=== PATIENT | female | born 2000 | race Caucasian/White ===

== ENCOUNTER 2024-12-27 02:07 | Inpatient (IN) | payer OTHER ==
[2024-12-27 08:22] LABS: ABSOLUTE IMMATURE GRANULOCYTES 0.06 x10^3/uL (0.0-0.031); BASOPHILS # 0.01 x10^3/uL (0.01-0.08); EOSINOPHIL % 0.2 % (0.7-5.8); EOSINOPHILS # 0.02 x10^3/uL (0.04-0.36); IMMATURE PLATELET FRACTION # 16.40 x10^3/uL; MCHC 32.6 g/dl (32.2-35.5); MEAN CELL VOLUME 99.1 fl (79.4-94.8); MONOCYTE # 0.78 x10^3/uL (0.24-0.86); MONOCYTE % 6.9 % (4.7-12.5); RDW 13.2 % (12.1-16.5)
[2024-12-27 08:27] LABS: INR 1.04 (0.83-1.09); PROTHROMBIN TIME (PATIENT) 11.3 SEC (9.7-13.0)
[2024-12-27 08:30] LABS: ACTIVATED PTT 27.4 SECONDS (25.2-36.5)
[2024-12-27 08:32] VITALS: BMI 21.4
[2024-12-27 08:39] LABS: CO2 22.0 mmol/L (21-32); GLUCOSE,RANDOM 73.0 mg/dL (74-106)
[2024-12-27 08:43] LABS: CREATININE 0.5 mg/dL (0.55-1.3)
[2024-12-27] MEDS ORDERED: FENTANYL/BUPIVACAINE/NS/PF - PCEA - 50 ML DISP.SYRIN EP ONE ×4 (09:26→22:32)
[2024-12-27] MEDS: OXYTOCIN 30 UNITS in 0.9% NS 30 UNIT/500 ML INFUS.BAG IVPB SCH (10:00)
[2024-12-27] MEDS: FENTANYL/BUPIVACAINE/NS/PF - PCEA - 50 ML DISP.SYRIN EP SCH (10:05)
[2024-12-27] MEDS ORDERED: OXYTOCIN 30 UNITS in 0.9% NS 30 UNIT/500 ML INFUS.BAG IVPB ONE (10:24)
[2024-12-27] MEDS ORDERED: NALOXONE HCL 0.4 MG/ML VIAL IVPUSH PRN (12:03)
[2024-12-27] MEDS ORDERED: OXYTOCIN 20 UNITS in 0.9% NS 20 UNIT/1,000 ML INFUS.BAG IV ONE (20:20)
[2024-12-27] MEDS ORDERED: METOCLOPRAMIDE HCL INJECTION 10 MG/2 ML VIAL ONE (23:48)
[2024-12-27] MEDS ORDERED: DEXAMETHASONE SOD PHOSPHATE 4 MG/1 ML VIAL ONE (23:48)
[2024-12-27] MEDS ORDERED: LIDOCAINE HCL/PF 2% SDV 5ML VIAL ONE (23:48)
[2024-12-27] MEDS ORDERED: OXYTOCIN 10 UNITS/ML VIAL ONE (23:48)
[2024-12-27] MEDS ORDERED: KETOROLAC TROMETHAMINE 30 MG/1 ML VIAL ONE (23:48)
[2024-12-27] MEDS ORDERED: ONDANSETRON 4 MG/2 ML VIAL ONE (23:48)
[2024-12-27] MEDS ORDERED: SODIUM CHLORIDE 0.9% P/F 10 ML VIAL IJ ONE (23:49)
[2024-12-28] MEDS ORDERED: FENTANYL CITRATE/PF 50 MCG/ML VIAL ONE (00:01)
[2024-12-28] MEDS ORDERED: morphine SULFATE/PF 1 MG/2 ML (2cc Syringe - QUVA) ONE (00:08)
[2024-12-28] MEDS ORDERED: AZITHROMYCIN IVPB 500 MG/250 ML BAG IVPB ONE (00:14)
[2024-12-28] MEDS ORDERED: SODIUM CHLORIDE 0.9% P/F 10 ML VIAL IJ ONE (00:16)
[2024-12-28] MEDS ORDERED: OXYTOCIN 10 UNITS/ML VIAL ONE (00:51)
[2024-12-28] MEDS ORDERED: ESMOLOL HCL 100,000 MCG/10 ML VIAL ONE (00:58)
[2024-12-28] MEDS ORDERED: METOPROLOL TARTRATE 5 MG/5 ML VIAL ONE (01:12)
[2024-12-28] MEDS ORDERED: METHYLERGONOVINE MALEATE 0.2 MG/1 ML AMP IM PRN (01:38)
[2024-12-28] MEDS: OXYTOCIN 20 UNITS in 0.9% NS 20 UNIT/1,000 ML INFUS.BAG IV SCH (02:15)
[2024-12-28] MEDS ORDERED: IBUPROFEN (CALDOLOR) 800 MG/200 ML PREMIX BAGS IVPB ONE (03:53)
[2024-12-28] MEDS: IBUPROFEN 800 MG/8 ML IJ IVPB PRN (04:00)
[2024-12-28] MEDS: LACTATED RINGERS SOLUTION 1,000 ML IV ONE (06:36)
[2024-12-28 07:53] LABS: IMMATURE PLATELET FRACTION # 15.30 x10^3/uL; MCHC 32.8 g/dl (32.2-35.5); MEAN CELL VOLUME 100.7 fl (79.4-94.8); MEAN PLT VOLUME 14.7 fl (9.4-12.3); RDW 13.4 % (12.1-16.5)
[2024-12-28] MEDS: FERROUS SO4 325 MG TABLET (FP) PO SCH (08:57)
[2024-12-28] MEDS: PRENATAL VITAMINS W/ FOLIC ACID TABLET (FP) PO SCH (08:57)
[2024-12-28] MEDS: IBUPROFEN 600 MG TABLET (FP) PO PRN (09:59)
[2024-12-28] MEDS: SIMETHICONE 80 MG TAB.CHEW (FP) PO PRN (10:00)
[2024-12-28] MEDS: ACETAMINOPHEN 325 MG TABLET (FP) PO PRN (17:05)
[2024-12-28] MEDS: DIPHTH,PERTUSS(ACELL),TET 0.5 ML DISP.SYRIN IM ONE (17:06)
[2024-12-29] MEDS ORDERED: BISACODYL 10 MG SUPP.RECT RC PRN (01:38)
[2024-12-29 08:03] LABS: BASOPHILS # 0.01 x10^3/uL (0.01-0.08); RDW 13.8 % (12.1-16.5)
[2024-12-29 08:04] LABS: ABSOLUTE IMMATURE GRANULOCYTES 0.14 x10^3/uL (0.0-0.031); EOSINOPHIL % 0.2 % (0.7-5.8); EOSINOPHILS # 0.02 x10^3/uL (0.04-0.36); IMMATURE PLATELET FRACTION # 12.40 x10^3/uL; MCHC 32.1 g/dl (32.2-35.5); MEAN CELL VOLUME 101.6 fl (79.4-94.8); MEAN PLT VOLUME 14.3 fl (9.4-12.3); MONOCYTE # 0.87 x10^3/uL (0.24-0.86); MONOCYTE % 6.9 % (4.7-12.5)
[2024-12-29] MEDS: IRON SUCROSE INJECTION 300 MG in SODIUM CHLORIDE 250 ML IVPB ONE (21:45)
[2024-12-30 23:07] VITALS: TEMP 98.4
[2024-12-31 07:49] VITALS: RESP 16
[2024-12-31 07:51] VITALS: BP 109/74; PULSE 79
[2024-12-31 07:59] LABS: BASOPHILS # 0.01 x10^3/uL (0.01-0.08); EOSINOPHIL % 1.6 % (0.7-5.8); EOSINOPHILS # 0.10 x10^3/uL (0.04-0.36); MEAN CELL VOLUME 100.7 fl (79.4-94.8)
[2024-12-31 08:00] LABS: ABSOLUTE IMMATURE GRANULOCYTES 0.05 x10^3/uL (0.0-0.031); IMMATURE PLATELET FRACTION # 11.20 x10^3/uL; MCHC 31.7 g/dl (32.2-35.5); MEAN PLT VOLUME 13.4 fl (9.4-12.3); MONOCYTE # 0.44 x10^3/uL (0.24-0.86); MONOCYTE % 7.1 % (4.7-12.5); RDW 13.7 % (12.1-16.5)
== END 2024-12-31 12:04 | disposition home or self-care (01) | DRG 540 ==
LOC: JDEL 02:07 → JLDR 07:10 → J3W 12-28 05:20
PROVIDERS: ADMIT Obstetrics & Gynecology; ATTEND Obstetrics & Gynecology
PROC: 10D00Z1 Extraction of Products of Conception, Low, Open Approach (ICD-10-PCS; principal; 2024-12-28)
DX: O62.1 Secondary uterine inertia (principal); Z3A.40 40 weeks gestation of pregnancy; Z37.0 Single live birth
CPT/HCPCS: 36415; 59025; 76819-TC; 80048; 85025; 85610; 85730; 86780; 86850; 86900; 86901; 88307-TC; 90715; 93005; 93010; J1756